=== PATIENT | female | born 1935 | race Caucasian/White ===

== ENCOUNTER 2023-12-27 15:01 | Emergency (ER) | payer MEDICARE, OTHER ==
[~2023-12-27] VITALS: Ht 160 cm; Wt 56.7 kg
[~2023-12-27 15:01] MED LIST: ASPI81CH; ASPI81EC PO; CALCAVITDA; CHOL10002; CODACE30; ERYT.5TO OS; HYDACE5; NAPR220; OXYACE5T PO; PANT20 PO; RXERYTOPTH OP
[2023-12-27 17:04] LABS: Albumin, Blood 3.2 g/dL (3.4-5.0); Albumin/Globulin Ratio 0.9 (0.8-1.8); Bun/Creatinine Ratio 16.4 (12.0-20.0); Calcium, Blood 8.9 mg/dL (8.5-10.1); Creatinine, Blood 0.67 mg/dL (0.40-1.00); Globulin, Blood 3.5 g/dL (2.2-4.0); Potassium, Blood 5.7 mmol/L (3.5-5.5); Total Protein, Blood 6.7 g/dL (6.4-8.2)
[2023-12-27] MEDS ORDERED: NS 1,000 ML IV SCH (19:20)
[2023-12-27 19:32] LABS: BASOPHILS ABSOLUTE AUTO 0.04 K/mm3 (0.00-0.23); BASOPHILS PERCENT AUTO 1 % (0-2); EOSINOPHILS ABSOLUTE AUTO 0.03 K/mm3 (0.00-0.68); EOSINOPHILS PERCENT AUTO 1 % (0-6); Hematocrit 38.2 % (33.0-51.0); Hemoglobin 12.8 g/dL (11.5-16.0); IMMATURE GRAN ABSOLUTE AUTO 0.01 K/mm3 (0.00-0.10); IMMATURE GRAN PERCENT AUTO 0 % (0-1); LYMPHOCYTES ABSOLUTE AUTO 1.53 K/mm3 (0.84-5.20); LYMPHOCYTES PERCENT AUTO 25 % (21-46); MONOCYTES ABSOLUTE AUTO 0.51 K/mm3 (0.16-1.47); MONOCYTES PERCENT AUTO 9 % (4-13); Mean Corpuscular HGB 31.8 pg (26.0-34.0); Mean Corpuscular HGB Conc 33.5 g/dL (31.5-36.5); Mean Corpuscular Volume 95 fL (80-100); Mean Platelet Volume 9.4 fL (9.1-12.4); NEUTROPHILS PERCENT AUTO 65 % (41-73); Platelet Count 315 K/mm3 (150-400); RDW Coefficient Variation 12.3 % (11.7-14.2); RDW Standard Deviation 42.8 fL (35.1-46.3); Red Blood Cell Count 4.03 M/mm3 (3.80-5.20); White Blood Cell Count 6.02 K/mm3 (4.00-11.30)
[2023-12-27 20:00] VITALS: BP 140/74
[2023-12-27 20:22] LABS: Source, Urine Clean Catch
[2023-12-27 20:25] LABS: Appearance, Urine Hazy (Clear); Bilirubin, Urine Neg (Neg); Blood, Urine Neg (Neg); Color, Urine Yellow (P-Yellow); Glucose Qualitative, Urine Neg (Neg); Ketones, Urine 3+ (Neg); Leukocyte Esterase, Urine 1+ (Neg); Nitrite, Urine Neg (Neg); Protein, Urine Neg (Neg); Urobilinogen, Urine NORM (Normal)
[2023-12-27 20:37] LABS: Amorphous Mod (0-Heavy); Bacteria Few /hpf; Red Blood Cells, Urine 0-2 /hpf (0-2); Squamous Epithelial Cells Few /hpf (Few)
[2023-12-27] MEDS ORDERED: Acetaminophen 500 MG Tab PO ONE (22:10)
== END 2023-12-27 22:41 | disposition home or self-care (01) ==
LOC: ER 15:01
PROVIDERS: Student in an Organized Health Care Education/Training Program
DX: M54.50 Low back pain, unspecified (principal); E87.5 Hyperkalemia; R10.31 Right lower quadrant pain; I10 Essential (primary) hypertension; E78.00 Pure hypercholesterolemia, unspecified
CPT/HCPCS: 36415; 74018; 74177; 80053; 81001; 83690; 84132; 85025; 87086; 93005; 93010; 96360-59; 96361; 99284-25; A9270; J7030; Q9967

== ENCOUNTER 2024-01-31 16:37 | Emergency (ER) | payer MEDICARE, OTHER ==
[~2024-01-31] VITALS: Ht 160 cm; Wt 58.1 kg
[2024-01-31 16:40] VITALS: BP 180/84
[2024-01-31] MEDS ORDERED: CEPH500 PO (17:20)
[2024-01-31] MEDS ORDERED: Ultram50 MG PO (17:20)
== END 2024-01-31 17:29 | disposition home or self-care (01) ==
LOC: ER 16:37
DX: L03.115 Cellulitis of right lower limb (principal); M54.50 Low back pain, unspecified; I10 Essential (primary) hypertension; E78.00 Pure hypercholesterolemia, unspecified; Z87.891 Personal history of nicotine dependence
CPT/HCPCS: 99283

== ENCOUNTER 2024-02-02 10:07 | Inpatient (IN) | payer MEDICARE, OTHER ==
[~2024-02-02] VITALS: Ht 160 cm; Wt 57.1 kg
[~2024-02-02 10:07] MED LIST changes: +CEPH500 PO; +Ultram50 MG PO
[2024-02-02 11:57] LABS: U Amphetamine Screen Not Detected; U Barbituate Screen Not Detected; U Benzodiazapine Screen Not Detected; U Buprenorphine Screen Not Detected; U Cannabinoids Screen Not Detected; U Cocaine Screen Not Detected; U Methadone Screen Not Detected; U Methamphetamine Screen Not Detected; U Opiates Screen Not Detected; U Oxycodone Screen Not Detected; U Phencyclidine Screen Not Detected
[2024-02-02 12:00] LABS: BASOPHILS ABSOLUTE AUTO 0.01 K/mm3 (0.00-0.23); BASOPHILS PERCENT AUTO 0 % (0-2); EOSINOPHILS PERCENT AUTO 0 % (0-6); Hematocrit 39.5 % (33.0-51.0); Hemoglobin 13.4 g/dL (11.5-16.0); IMMATURE GRAN ABSOLUTE AUTO 0.03 K/mm3 (0.00-0.10); IMMATURE GRAN PERCENT AUTO 0 % (0-1); LYMPHOCYTES ABSOLUTE AUTO 0.87 K/mm3 (0.84-5.20); LYMPHOCYTES PERCENT AUTO 9 % (21-46); MONOCYTES ABSOLUTE AUTO 0.74 K/mm3 (0.16-1.47); MONOCYTES PERCENT AUTO 8 % (4-13); Mean Corpuscular HGB 31.8 pg (26.0-34.0); Mean Corpuscular HGB Conc 33.9 g/dL (31.5-36.5); Mean Corpuscular Volume 94 fL (80-100); Mean Platelet Volume 9.1 fL (9.1-12.4); NEUTROPHILS ABSOLUTE AUTO 7.82 K/mm3 (1.96-9.15); NEUTROPHILS PERCENT AUTO 83 % (41-73); Platelet Count 336 K/mm3 (150-400); RDW Coefficient Variation 13.6 % (11.7-14.2); RDW Standard Deviation 46.5 fL (35.1-46.3); Red Blood Cell Count 4.21 M/mm3 (3.80-5.20); White Blood Cell Count 9.47 K/mm3 (4.00-11.30)
[2024-02-02 12:21] LABS: Alanine Aminotransfer (ALT/SGP 34 U/L (12-78); Albumin, Blood 3.3 g/dL (3.4-5.0); Albumin/Globulin Ratio 0.9 (0.8-1.8); Alk Phos 132 U/L (50-136); Anion Gap 14 mmol/L (3-11); Aspartate Aminotrans (AST/SGOT 38 U/L (12-37); Bilirubin, Total 1.1 mg/dL (0.1-1.0); Blood Urea Nitrogen 12 mg/dL (8-24); Bun/Creatinine Ratio 19.7 (12.0-20.0); CO2, Blood 23 mmol/L (21-32); Calcium, Blood 9.4 mg/dL (8.5-10.1); Chloride, Blood 101 mmol/L (98-108); Creatinine, Blood 0.61 mg/dL (0.40-1.00); Ethanol (Alcohol), Blood, Med <3 mg/dL; Globulin, Blood 3.7 g/dL (2.2-4.0); Glomerular Filtration Rate 86 (60-); Glucose, Blood 90 mg/dL (70-99); Potassium, Blood 3.9 mmol/L (3.5-5.5); Sodium, Blood 134 mmol/L (136-145)
[2024-02-02 13:02] LABS: Source, Urine Clean Catch
[2024-02-02 13:14] LABS: Appearance, Urine Clear (Clear); Bilirubin, Urine Neg (Neg); Blood, Urine Neg (Neg); Color, Urine Yellow (P-Yellow); Glucose Qualitative, Urine Neg (Neg); Ketones, Urine 3+ (Neg); Leukocyte Esterase, Urine Neg (Neg); Nitrite, Urine Neg (Neg); Protein, Urine Neg (Neg); Urobilinogen, Urine NORM (Normal); pH, Urine 6.5 (5.0-8.0)
[2024-02-02] MEDS ORDERED: FentaNYL Citrate 50 MCG/ML 2 ML Injection IV ONE (13:20)
[2024-02-02] MEDS ORDERED: Morphine Sulfate 4 MG/1 ML Injection IV ONE (14:50)
[2024-02-02] MEDS ORDERED: Bisacodyl 10 MG Supp PR PRN (15:05)
[2024-02-02] MEDS ORDERED: OxyCODONE HCL 5 MG TAB PO PRN (15:10)
[2024-02-02] MEDS ORDERED: Morphine Sulfate 4 MG/1 ML Injection IV PRN (15:10)
[2024-02-02] MEDS ORDERED: Ondansetron HCl 2 MG / ML 2ML Vial IV PRN (15:10)
[2024-02-02] MEDS ORDERED: Temazepam 15 MG Cap PO PRN (15:10)
[2024-02-02] MEDS ORDERED: Ondansetron 4 MG TAB PO PRN (15:10)
[2024-02-02] MEDS ORDERED: Acetaminophen 325 MG TABLET PO PRN (15:10)
[2024-02-02] MEDS ORDERED: Magnesium Hydroxide Conc 10 ML UDC PO PRN (15:15)
[2024-02-02] MEDS ORDERED: HydrALAZINE HCl 20 MG / ML 1ML Vial IV PRN (15:20)
--- NOTE | 2024-02-02 15:49 | NUR ---
1545- REPORT RECEIVED FROM ALEX GABRIEL RN.
[2024-02-02] MEDS ORDERED: Cephalexin Monohydrate 500 MG Cap PO SCH ×2 (16:00→21:00)
[2024-02-02] MEDS ORDERED: AmLODIPine Besylate 5 MG Tab PO SCH (16:00)
[2024-02-02 16:19] VITALS: BP 185/73
[2024-02-02] MEDS ORDERED: Omeprazole 20 MG CapCR PO SCH (16:30)
--- NOTE | 2024-02-02 18:26 | NUR ---
TO THE FLOOR PT ARRIVED ON UNIT. TRANSFERRED VIA SLIDESHEET. EXPRESSED LOWER BACK PAIN. HEARING IMPAIRED EVEN WITH HEARING AIDS IN. MEDICATED PER EMAR. DAUGHTER (ERVIN) IS POA. ON ROOM AIR, PRESENTED WITH COTHES ON BODY, SHOES, GLASSES, AND HEARING AIDS.
[2024-02-02 19:26] VITALS: BP 120/49
[2024-02-02] MEDS ORDERED: TRAM50 PO (19:38)
[2024-02-02] MEDS ORDERED: CEPH500 PO (19:40)
[2024-02-02] MEDS ORDERED: Sennosides 8.6 MG Tab PO SCH (21:00)
[2024-02-02] MEDS ORDERED: Docusate Sodium 100 MG Cap PO SCH (21:00)
--- NOTE | 2024-02-03 03:06 | NUR ---
SHIFT SUMMARY 88 YR F ADMITTED ON 02/02/24. FULL CODE. NO ACUTE CHANGES THIS SHIFT. PT C/O LOWER BACK PAIN AND MEDICATED PER EMAR. SHE IS PLEASANTLY CONFUSED AND COOPERATIVE WITH CARE. SHE HAS SLEPT FOR MOST OF THIS SHIFT. WILL CONTINUE TO MONITOR. BED IN LOW POSITION AND CALL LIGHT IN REACH.
[2024-02-03 04:21] VITALS: BP 125/63
[2024-02-03 05:20] LABS: BASOPHILS ABSOLUTE AUTO 0.03 K/mm3 (0.00-0.23); BASOPHILS PERCENT AUTO 1 % (0-2); EOSINOPHILS ABSOLUTE AUTO 0.04 K/mm3 (0.00-0.68); EOSINOPHILS PERCENT AUTO 1 % (0-6); Hematocrit 36.3 % (33.0-51.0); Hemoglobin 12.1 g/dL (11.5-16.0); IMMATURE GRAN ABSOLUTE AUTO 0.02 K/mm3 (0.00-0.10); IMMATURE GRAN PERCENT AUTO 0 % (0-1); LYMPHOCYTES ABSOLUTE AUTO 1.25 K/mm3 (0.84-5.20); LYMPHOCYTES PERCENT AUTO 19 % (21-46); MONOCYTES ABSOLUTE AUTO 0.93 K/mm3 (0.16-1.47); MONOCYTES PERCENT AUTO 14 % (4-13); Mean Corpuscular HGB 32.2 pg (26.0-34.0); Mean Corpuscular HGB Conc 33.3 g/dL (31.5-36.5); Mean Corpuscular Volume 97 fL (80-100); Mean Platelet Volume 9.3 fL (9.1-12.4); NEUTROPHILS ABSOLUTE AUTO 4.34 K/mm3 (1.96-9.15); NEUTROPHILS PERCENT AUTO 66 % (41-73); Platelet Count 309 K/mm3 (150-400); RDW Standard Deviation 49.1 fL (35.1-46.3); Red Blood Cell Count 3.76 M/mm3 (3.80-5.20); White Blood Cell Count 6.61 K/mm3 (4.00-11.30)
[2024-02-03 05:45] LABS: Albumin, Blood 2.7 g/dL (3.4-5.0); Albumin/Globulin Ratio 0.8 (0.8-1.8); Bilirubin, Total 0.7 mg/dL (0.1-1.0); Bun/Creatinine Ratio 18.5 (12.0-20.0); Calcium, Blood 9.3 mg/dL (8.5-10.1); Creatinine, Blood 0.81 mg/dL (0.40-1.00); Globulin, Blood 3.5 g/dL (2.2-4.0); Potassium, Blood 3.6 mmol/L (3.5-5.5); Total Protein, Blood 6.2 g/dL (6.4-8.2)
[2024-02-03 07:14] VITALS: BP 138/52
[2024-02-03] MEDS ORDERED: Enoxaparin 40 MG/0.4 ML SYR SC SCH (09:00)
[2024-02-03 14:57] VITALS: BP 133/59
--- NOTE | 2024-02-03 17:56 | NUR ---
SUMMARY- PT AAOX4, BUT FORGETFUL AND DISPLAYING STM LOSS. PT TO CHAIR X1 ASSIST TODAY WITH A WALKER. PT ON RA. PAIN WELL CONTROLLED WITH EMAR PAIN MEDS. NO ACUTE EVENTS THIS SHIFT.
[2024-02-03 20:06] VITALS: BP 143/68
[2024-02-04 02:12] VITALS: BP 152/64
--- NOTE | 2024-02-04 03:53 | NUR ---
PT MEDICATED X 1 FOR PAIN. OOB UP TO BR X1. pT RESING QUIETLY IN BED WITH EYES CLOSED AT THIS TIME.
[2024-02-04 05:07] LABS: BASOPHILS ABSOLUTE AUTO 0.02 K/mm3 (0.00-0.23); BASOPHILS PERCENT AUTO 0 % (0-2); EOSINOPHILS ABSOLUTE AUTO 0.05 K/mm3 (0.00-0.68); EOSINOPHILS PERCENT AUTO 1 % (0-6); Hematocrit 35.2 % (33.0-51.0); Hemoglobin 11.5 g/dL (11.5-16.0); IMMATURE GRAN ABSOLUTE AUTO 0.02 K/mm3 (0.00-0.10); IMMATURE GRAN PERCENT AUTO 0 % (0-1); LYMPHOCYTES ABSOLUTE AUTO 1.16 K/mm3 (0.84-5.20); LYMPHOCYTES PERCENT AUTO 21 % (21-46); MONOCYTES ABSOLUTE AUTO 0.79 K/mm3 (0.16-1.47); MONOCYTES PERCENT AUTO 14 % (4-13); Mean Corpuscular HGB 31.8 pg (26.0-34.0); Mean Corpuscular HGB Conc 32.7 g/dL (31.5-36.5); Mean Corpuscular Volume 97 fL (80-100); NEUTROPHILS ABSOLUTE AUTO 3.46 K/mm3 (1.96-9.15); NEUTROPHILS PERCENT AUTO 63 % (41-73); Platelet Count 323 K/mm3 (150-400); RDW Coefficient Variation 13.9 % (11.7-14.2); RDW Standard Deviation 50.3 fL (35.1-46.3); Red Blood Cell Count 3.62 M/mm3 (3.80-5.20)
[2024-02-04 05:42] LABS: Bun/Creatinine Ratio 25.1 (12.0-20.0); Calcium, Blood 8.7 mg/dL (8.5-10.1); Creatinine, Blood 0.64 mg/dL (0.40-1.00); Potassium, Blood 3.9 mmol/L (3.5-5.5)
[2024-02-04 07:03] VITALS: BP 138/67
[2024-02-04] MEDS ORDERED: Polyethylene Glycol 3350 17 gm PO SCH (09:00)
--- NOTE | 2024-02-04 11:48 | NUR ---
Spiritual care visit conducted. Patient is sitting on a chair and alert. She talks at length about her family, her quang and her current living arrangements. She shares about her quang is her greatest source of hope and duane. The spiritual wellbeing of her family is top of the mind for her. I provided therapeutic listening, spiritual guidance and prayer. PAtient responded well and showed signs of being encouraged in her quang. I will continue to remain available to patient and family.
[2024-02-04 15:09] VITALS: BP 132/61
--- NOTE | 2024-02-04 15:37 | NUR ---
MEET/GREET WITH VITO. SHE IS A/O TO SELF AND LOCATION. SHE IS HYPERFOCUSED ON HER CONSTIPATION. LAST BM WAS 4 DAYS AGO. SHE RECEIVED MILK OF MAG YESTERDAY AND THIS MORNING WITHOUT RELIEF. PT IS AGREEABLE TO DRINKING A STANDARDIZED RECIPE OF VARIOUS FRUIT JUICES AND MELTED BUTTER FOR THERAPUTIC BOWEL RELIEF. LEFT A BLANK ADVANCE DIRECTIVE AT PT'S BEDSIDE FOR FAMILY TO REVIEW WITH PT. PC WILL ATTEMPT FOLLOW UP VISIT TOMORROW.
--- NOTE | 2024-02-04 17:50 | NUR ---
DAY SHIFT SUMMARY: A&Ox4. PLEASANT AND COOPERATIVE WITH CARE. NEUROTIC AND ANXIOUS REGARDING SURROUNDINGS, PARTICULARLY WHEN PAIN IS HEIGHTENED. PAIN DIFFICULT TO CONTROL TODAY PATIENT DOES NOT ASK FOR PAIN MEDS UNTIL PAIN IS OOP AND RELIEF IS DIFFICULT TO ACHIEVE. EDUCATION PROVIDED REGARDING IMPORTANCE OF ADEQUATE PAIN MANAGEMENT AND RISKS OF "CHASING PAIN". CALLS APPROPRIATELY AND IS ABLE TO ADVOCATE NEEDS EFFECTIVELY. 1PA c FWW TO BATHROOM. CONTINENT WITH URGE/EPISODIC ACCIDENTS. NO BOWEL MOVEMENT OF YET; MILK OF MAGNESIA ADMINISTERED AND "BROWN COW" GIVEN BY PALLIATIVE CARE NURSE. MEDS WHOLE WITH APPLESAUCE. WORKED WITH PT/OT THIS SHIFT. UP TO CHAIR FOR LUNCH AND BACK TO BED. HEATING PAD FOR C/O BACK PAIN. ENCOURAGED TO REPOSITION FREQUENTLY SHE HAS BLANCHABLE AREA ON BONY PROMINENCE OF MID-BACK ON SPINE. BED IN LOWEST POSITION. CALL LIGHT WITHIN REACH. ALL NEEDS MET. REPORT TO ONCOMING RN.
[2024-02-04 20:04] VITALS: BP 136/65
--- NOTE | 2024-02-05 03:39 | NUR ---
PT C/O PAIN X2 THROUGH THE NIGHT. MEDICATED PER DR ORDERS. PT UP TO BSC WITH INCREASING DIFFICULTY. WILL CONT TO ASSESS PTS STRENGTH ABILITY PRIOR TO OOB. PT CONFUSED.
[2024-02-05 03:40] VITALS: BP 140/71
[2024-02-05 07:20] VITALS: BP 120/43
[2024-02-05 08:05] VITALS: BP 111/49
[2024-02-05 10:17] VITALS: BP 120/58
--- NOTE | 2024-02-05 12:30 | NUR ---
CALL TO DR PATINO TO UPDATE REGARDING NO BM: ORDER FOR KUB.
--- NOTE | 2024-02-05 12:42 | NUR ---
RETURN TO ROOM AFTER ABD IMAGING.
--- NOTE | 2024-02-05 14:41 | NUR ---
VITO WAS SITTING UP IN HER CHAIR THIS MORNING WITH BREAKFAST TRAY IN FRONT OF HER. SHE HAD A FEW SIPS OF HER JUICE AND REPORTS, "I'M NOT VERY HUNGRY". SHE IS ON DAY 5 W/O A BM. COLLABORATED WITH PRIMARY RN RE: BOWEL CARE OPTIONS. PRIMARY RN TO REACH OUT TO PRIMARY FOR POSSIBLE IMAGING TO R/O BOWEL BLOCKAGE. MESSAGE LEFT FOR PT'S DTR RE: ADVANCE DIRECTIVE. AD BOOKLET AT BEDSIDE.
[2024-02-05 15:00] VITALS: BP 138/63
--- NOTE | 2024-02-05 15:48 | NUR ---
KUB RESULTS WNL. PATIENT HAVING SMALL AMOUNT OF FORMED STOOL. REPORTS FEELING "MOVEMENT" IN ABDOMEN AND THINKS "IT'S WORKING".
--- NOTE | 2024-02-05 18:41 | NUR ---
DAY SHIFT SUMMARY: A&Ox4. ANXIOUS, BUT COOPERATIVE WITH CARE. CALLS APPROPRIATELY AND IS ABLE TO ADVOCATE NEEDS, THOUGH DOES REQUIRE REDIRECTION TO NAVIGATE AND DECIPHER HER THOUGHTS. INCREASED ANXIETY AND CONFUSION NOTED TODAY, AND PATIENT IS AWARE OF HER CONFUSION. IS ON DAY #4 IN HOSPITAL SO MAY BE C/W HOSPITAL DELIRIUM. IS ALSO RECEIVING OPIATES FOR PAIN CONTROL, WHICH MAY PROVIDE AN ELEMENT OF CONFUSION. CONTINUES TO BE CONSTIPATED TODAY; KUB DONE TO R/O OBSTRUCTION. DID EVENTUALLY HAVE ONE LIQUID STOOL FOLLOWED BY ONE FORMED BOWEL MOVEMENT TODAY. IF NO PRODUCTION OF STOOL MAY ADMINISTER ENEMA PER DR. PATINO. 1PA TO BSC THIS MORNING AND ABLE TO AMBULATE TO BATHROOM WITH SBA & FWW BY THIS AFTERNOON. WORKED WITH PT AND OT. BED IN LOWEST POSITION. CALL LIGHT WITHIN REACH. ALL NEEDS MET. REPORT TO ONCOMING RN.
[2024-02-05 19:37] VITALS: BP 128/57
[2024-02-06 03:16] VITALS: BP 150/76
--- NOTE | 2024-02-06 05:40 | NUR ---
END OF SHIFT SUMMARY PT A&OX4 WITH PERIODS OF FORGETFULNESS AND IMPULSIVITY. NO BM THIS EVENING. SLEPT WELL AFTER RESTORIL GIVEN. NO ACUTE EVENTS OVERNIGHT.
[2024-02-06 07:20] VITALS: BP 155/67
[2024-02-06 10:54] LABS: SARS-Cov-2 (COVID-19) PCR, MMC NEGATIVE (NEGATIVE)
--- NOTE | 2024-02-06 12:57 | NUR ---
DISCHARGE NOTE: PATIENT FINISHED HER LUNCH, WE COLLECTED HER BELONGINGS, ASSISTED HER TO THE RESTROOM AND GOT HER DRESSED. PACKAGE PROVIDED TO MEDICAL TRANSPORTER. CALLED AND GAVE REPORT TO MÓNICA MAIER AT [facility]. TRANSPORTED PATIENT TO WHEELCHAIR AND SHE WAS TAKEN TO [facility] BY MEDICAL TRANSPORT AND FOLLOWED BY HER DAUGHTER. NO SIGNS OR SYMPTOMS OF DISTRESS DURING DISCHARGE.
== END 2024-02-06 12:57 | DRG 542 ==
LOC: ER 10:07 → MEDS 10:08 → ER 11:07 → MEDS 16:16 → ENPENDDIS 02-06 11:56 → MEDS 02-06 12:57
PROVIDERS: Internal Medicine; Student in an Organized Health Care Education/Training Program; ADMIT Internal Medicine
DX: M80.08XA Age-related osteoporosis with current pathological fracture, vertebra(e), initial encounter for fracture (principal); G93.41 Metabolic encephalopathy; L03.115 Cellulitis of right lower limb; W18.30XA Fall on same level, unspecified, initial encounter; K59.00 Constipation, unspecified; I10 Essential (primary) hypertension; E78.5 Hyperlipidemia, unspecified; Z87.442 Personal history of urinary calculi; Z87.11 Personal history of peptic ulcer disease; Z87.19 Personal history of other diseases of the digestive system; K44.9 Diaphragmatic hernia without obstruction or gangrene; E78.00 Pure hypercholesterolemia, unspecified; Z85.820 Personal history of malignant melanoma of skin; Z90.710 Acquired absence of both cervix and uterus; Z98.890 Other specified postprocedural states; Z90.49 Acquired absence of other specified parts of digestive tract; Z90.89 Acquired absence of other organs; Z90.79 Acquired absence of other genital organ(s); Z90.721 Acquired absence of ovaries, unilateral; Z87.891 Personal history of nicotine dependence
CPT/HCPCS: 36415; 70450; 71046; 72125; 74018; 74177; 80048; 80053; 80320; 81003; 85025; 92526; 92610; 93005; 93010; 96372; 96374-59; 96375; 96376; 97110; 97116; 97162; 97165; 97530; 97535; 99283; 99285-25; A9270; G0378; J0360; J1650; J2270; J3010; Q9967; U0002